=== PATIENT | female | born 1950 | race Caucasian/White ===

== ENCOUNTER 2020-11-22 13:28 | Emergency (ER) | payer OTHER ==
[~2020-11-22] VITALS: Ht 162.6 cm; Wt 99.8 kg
[~2020-11-22 13:28] MED LIST: ABILIFY10 MG PO; ASA81BEC PO; BUPROPION XL300 MG PO; HYDROXYZINE HCL50 MG PO; LIPITOR40 MG PO; NEURONTIN 300M300 M2 PO; NORCO5 PO; PLAVIX 75 MG TA75 MG PO; PROTONIX40 M2 PO; TIZANIDINE HCL4 M2 PO
[2020-11-23 00:27] VITALS: BP 168/89
[2020-11-23] MEDS ORDERED: PRINIVIL20 MG PO (08:24)
[2020-11-23] MEDS ORDERED: LIPITOR 40 MG T40 M1 PO (08:25)
[2020-11-23] MEDS ORDERED: CLOPIDOGREL75 MG PO (08:25)
[2020-11-23] MEDS ORDERED: ASPIRIN EC81 M1 PO (08:25)
[2020-11-23] MEDS ORDERED: HYDROCODON-ACE1 EAC7 PO (17:09)
== END 2020-11-23 00:29 ==
LOC: ER 13:28
PROVIDERS: Physician Assistant
DX: R45.1 Restlessness and agitation (principal); Z20.822 Contact with and (suspected) exposure to COVID-19

== ENCOUNTER 2020-11-22 14:54 | Inpatient (IN) | payer OTHER ==
[~2020-11-22] VITALS: Ht 162.6 cm; Wt 96.2 kg
--- NOTE | 2020-11-23 04:24 | NUR ---
Arrived on the [facility] floor, accompanied by x1 staff from the [facility] Emergency Department via bed @ 0030 on 11/23/20 and transferred to bed 526B. Has bruises on the right arm and scratches on her buttocks, redness noted around the anus. Toe nails are yellow and thick and the right foot, great toe nail is 1/2 removed. verbalizes aphasic speach continually. Has pain in right hip of 4/10. Reports that she does not use a walker but ambulates with an unsteady gait and x1 assist. History of multiple CVA, HTN, GERD, Shingles Sciatica, Depression, Osteoarthritis, HX Surgical cholecystectomy, Tubal ligation. VS 159/104 104 18 98.7 wt 212.3 ht 5'4". Bed in low position, bed alarm set will monitor patient every 12 minutes for patient safety and comfort.
[2020-11-23 07:49] LABS: CHOLESTEROL 125 mg/dL (<200); HDL CHOLESTEROL 38 mg/dL (>40); LDL CHOLESTEROL 63 mg/dL (<100); TC:HDL 3.3 Ratio (Not establshd); TRIGLYCERIDE 123 mg/dL (<150); VLDL 25 mg/dL (<40)
[2020-11-23] MEDS ORDERED: PRINIVIL20 MG PO (08:24)
[2020-11-23] MEDS ORDERED: ASPIRIN EC81 M1 PO (08:25)
[2020-11-23] MEDS ORDERED: LIPITOR 40 MG T40 M1 PO (08:25)
[2020-11-23] MEDS ORDERED: CLOPIDOGREL75 MG PO (08:25)
[2020-11-23 09:12] VITALS: BP 153/84
--- NOTE | 2020-11-23 10:12 | NUR ---
Nutrition: New admit [facility] with unspecified depression, agitation. Little info as just admitted early this am. Noted pt refused breakfast, stating she disliked biscuits/gravy. RD will enter alternate preference when these are on menu. Voiced no other food preferences and generally good appetite. No weight changes. Current weight 36, BMI obesity class 2. Will follow po trends for accuracy but place pt as low nutrition risk at this time.
[2020-11-23 11:40] VITALS: BP 153/84
[2020-11-23 13:06] LABS: ALBUMIN 3.5 g/dL (3.4-5.0); CALCIUM 8.8 mg/dL (8.5-10.1); CREATININE 1.2 mg/dL (0.6-1.0); TOTAL BILIRUBIN 0.3 mg/dL (0.2-1.0); TOTAL PROTEIN 6.1 g/dL (6.4-8.2)
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
--- NOTE | 2020-11-23 15:29 | NUR ---
Jessie was alert and oriented to person, place, time, and situation. She slept in this morning as she was admitted over night. She came to the dayroom once awake and appeared extremely anxious. She started to appear as though she was hyperventilating and experiencing a panic attack. Pt stated that she is "always like this". She stated that "nothing" helps at home and that she tries to sleep, and sleeps a lot at home. Dr. Gregorio was paged and stated he was on his way up to the unit and would meet with pt first. Dr. Gregorio started pt on ativan 0.5mg TID. The first dose did not appear to calm pt down much, was educated on deep breathing skills and phone calls made to pt's family which appeared to help. Pt received tizanidine 4 mg PO PRN for muscle spasms as pt was c/o right hip pain. Tyelnol was then ordered and also given per pt request for c/o right hip pain with her scheduled 1500 ativan; the combination appeared to have been effective as pt is currently resting in her bed comfortably. When asked if pt was experiencing suicidal thoughts, pt initially denied but when further discussing her symptoms pt stated "I don't care if I live or ". She was able to contract for safety. She denied HI/SHIPLEY. Pt's brother, Reyes, called this shift and pt gave permission to speak with him. Pt's brother stated that he is her caregiver and expressed wishes for her to return home. Pt was medication compliant this shift but required encouragement to eat, and appeared to have a poor appetite. Pt was given a walker this morning as pt appeared weak and expressed difficulty walking. Per PT pt should use walker with short distances and w/c for long distances at this time. Pt's bed alarm remained on while in bed and ambulated using her walker this shift. Will continue to monitor.
[2020-11-23] MEDS ORDERED: HYDROCODON-ACE1 EAC7 PO (17:09)
--- NOTE | 2020-11-23 18:02 | NUR ---
Jessie was alert and oriented x4 this shift. She slept in this morning as pt was admitted over night but once awake she came to the dayroom for group but immediately appeared anxious. She appeared to be having a panic attack, page was sent to Dr. Gregorio who stated he was on his way up to the unit and would come talk with her. New orders placed for ativan 0.5mg TID. Pt also voiced c/o right hip pain that had little improvement with PRN tizanidine and tylenol. Prior to dinner pt was moaning in pain, rating right hip pain 8/10, stabbing in nature and was not due for tizanidine or tylenol at that time. Pt stated that when she spoke to Dr. Charles he was going to order her a pain pill, Dr. Cahrles was paged, and home med of hydrocodone was restarted and given per APR. Pt is currently trying to rest in bed. When asked if pt was experiencing suicidal thoughts, she initially denied, but when discussing her anxiety and pain she stated "I don't care if I live or ". Pt was given other ways to cope such as education on deep breathing and offered to call family which appeared to help at times throughout the day. At 1805 pt's bed alarm was going off and pt stated she was having diarrhea, she stated it had just started, she had c/o heatburn and some nausea; zofran and mylanta given per MAR. Pt continued to stated "I just want to go to sleep. Do you see why I just wanted to go to sleep and not wake up!?". Emotional support given and pt receptive but continued to be tearful and she stated "I just want to go home". Education given on expectations during her stay, pt voiced understanding, but that she still wishes she could go home. Will continue to monitor.
[2020-11-23 19:21] VITALS: BP 121/75
[2020-11-24 01:06] LABS: GLYCOHEMOGLOBIN (HGB A1C) 5.6 % (4.8-5.6)
--- NOTE | 2020-11-24 01:34 | NUR ---
PATIENT IS EXTREMELLY ANXIOUS AND WHEN AWAKE SHE IS MAKING MOANING SOUNDS. PATIENT DENIES SI,HI, AH AND VH AND STATES SHE JUST WANTS TO GO HOME NOW. PATIENT WAS INCONTINENT OF BOWEL THIS EVENING. PATIENT IS ALERT AND ORIENTED X 4, STATES SHE IS ALWAYS IN PAIN, MEDICATION COMPLIANT. PATIENT AMBULATES WITH THE AID OF A WALKER.
[2020-11-24 09:08] VITALS: BP 143/88
[2020-11-24 14:12] VITALS: BP 143/88
--- NOTE | 2020-11-24 15:55 | NUR ---
Jessie was alert and oriented x4 this shift. She slept in this morning but shortly after going to the dayroom, she began to voice anxiety and that "my anxiety hasn't gotten any better". She also endorsed pain; PRN hydrocodone given at 1114 and tizanidine at 1155 as pt continued to moan and grimace in pain. Scheduled ativan given with what appeared to be some effectiveness. Pt endorsed passive SI of wishing she could go to sleep and not wake up but denied plan/intent and was able to contract for safety. This afternoon pt's pain appeared to be more under control as pt was resting comfortably in bed. She expressed, "my humming hasn't gotten any better and I thought it would have. I'm embarrassed, that's why I don't like to be by everyone else". Emotional support given and pt was receptive; she did come out of her room for a little bit afterwards but shortly after returned to her room. Pt remains a high fall risk and is wearing a yellow shirt, with yellow-skid socks, has had her bed alarm on throughout the day, and has ambulated with a walker, and assisted to the bathroom when needed. Pt has been medication and meal compliant, without difficulty. She did endorse an episode of diarrhea last night but denied an episode yet today. Dr. Charles was updated and order placed for immodium PRN. Will continue to monitor.
[2020-11-24 19:30] VITALS: BP 126/80
--- NOTE | 2020-11-24 23:12 | NUR ---
Assumed care on 11/24/20 @ 1900, in bedroom in bed, opens eyes to voice and reorts some anxiety and depression. Denies active SI and HI. Reports pain in her hip, provided norco 5/325 for 8/10 pain and upon follow up is noted to be sleeping. Bed in low position, will continue to monitor for safety and comfort as per unit protocol.
[2020-11-25 09:29] VITALS: BP 106/59
[2020-11-25 11:43] VITALS: BP 106/59
--- NOTE | 2020-11-25 17:43 | NUR ---
Jessie was alert and oriented x4 this shift. She appeared slightly less anxious that previous day. She requested her hydrocodone and zanaflex PRN per MAR for pain. Despite c/o pain she appeared to make more of an effort to attend groups and get out of bed to come to the dayroom. She had a moment of being tearful today and stating she just wanted to go home, but respnoded appropriately to emotional support. She denied SI/HI/SHIPLEY and did not make any statements of wishing she could just go to sleep which is an improvement. She voiced anxiety about what was going to be determined during her family meeting next week. She was medication compliant but appears to have a decreased appetite. She did voice c/ diarrhea this afternoon; immodium givem per MAR. Will continue to monitor.
--- NOTE | 2020-11-26 00:44 | NUR ---
11/25/20- Pt was in bed during the beginning of the shift. Pt does get up intermittently to use the restroom, Pt was anxious this shift expressed concerns about not being able to go home with her brother, reassurance provided and talked with pt and allowed her to express her feelings and concerns. Pt denies SI/HI/AH/VH. Pt is alert/orient x 3, will continue to monitor throughout shift.
[2020-11-26 00:56] VITALS: BP 106/59
[2020-11-26 05:23] LABS: ABSOLUTE NEUTROPHILS 2.5 thou/uL (1.4-8.2); BASOPHILS 0.6 % (0.0-2.0); EOSINOPHILS 1.6 % (0.0-3.0); HEMATOCRIT 33.5 % (37.0-47.0); HEMOGLOBIN 10.6 gm/dL (12.0-15.0); LYMPHOCYTES 36.9 % (24.0-44.0); MCH 26.2 pg (26.0-34.0); MCHC 31.8 g/dL (28.0-37.0); MCV 82.3 fL (80.0-100.0); MONOCYTES 6.1 % (1.0-8.0); PLATELET COUNT 265 thou/uL (150-400); POLYS 54.8 % (36.0-66.0); RBC 4.07 mil/uL (4.20-5.00); RDW 14.9 % (10.5-14.5); WBC 4.5 thou/uL (4.0-11.0)
[2020-11-26 05:31] LABS: ALBUMIN 3.3 g/dL (3.4-5.0); CALCIUM 8.6 mg/dL (8.5-10.1); CREATININE 1.2 mg/dL (0.6-1.0); MAGNESIUM 2.3 mg/dL (1.8-2.4); POTASSIUM 3.9 mmol/L (3.5-5.1); TOTAL BILIRUBIN 0.4 mg/dL (0.2-1.0); TOTAL PROTEIN 6.4 g/dL (6.4-8.2)
[2020-11-26 09:55] VITALS: BP 140/68
[2020-11-26 13:11] VITALS: BP 140/68
--- NOTE | 2020-11-26 16:18 | NUR ---
Jessie was alert and oriented x4 this shift. She was anxious with a flat affect throughout the day, and tearful at times. She voiced anxiety around her situation with her family and expressed she spoke to her brother last night that upset her and reports she did not sleep well last night. She voiced c/o pain throughout the day of R hip pain and received hydrocodone and zanaflex PRN per MAR with some effectiveness. Pt voiced that she feels as though her anxiety has not improved and was worried about this, emotional support given; this was also reported to FOOD VENDOR Prosper. Pt voiced passive SI stating "I just want to go to sleep and not wake up". Pt spoke to her daughter, Елена, this afternoon and this RN also spoke to daughter; Елена voiced concerns and frustration regarding pt's brother talking to pt and receiving information about pts care. Елена was educated that pt is her own person and therefore makes her own decisions. Елена stated that her and her brother have DPOA paperwork; she was provided with Jessie's email (community cultural development officer) to email the paperwork to. Елена was also updated that the first day pt was here she told this RN to give her brother her code and wanted this RN to talk to him. That afternoon pt also wanted to talk to him and said she had a good conversation with him. This RN also communicated understanding of the situation and that if pt's wishes were to not have her brother have information any longer or talk to her then this would be passed on in report and to other staff. Pt confirmed that it would be best for her to not talk to her brother at this time despite her wanting to. This was passed on to staff on the unit and will be passed on to HS RN [place] in report. Pt remains a high fall risk and remains in a yellow shirt, yellow non-skid socks, and had her bed alarm on throughout the day. Pt ambulated using a walker this shift and did not c/o any diarrhea. She did state "I'm actually hungry today" as pt has not had much of an appetite since she has been here. Pt denied HI/SHIPLEY and contracted for safety. Pt received hydroxyzine this morning for c/o anxiety but stated "I don't think it helped". Will continue to monitor.
--- NOTE | 2020-11-26 16:51 | NUR ---
SW attempted to check in with pt. during group. Pt. was extremely emotional. Pt. expressed being in pain and wanting to go back to her room. Prior to the SW talking to the pt, the pt had been on the phone. The SW talked to the nurse who also talked to the pt's family member. The nurse reported that the pt. is no longer talking to her brother, Reyes.
[2020-11-26 19:30] VITALS: BP 91/57
--- NOTE | 2020-11-27 00:15 | NUR ---
PATIENT RESTING IN HER ROOM AAOX2. PATIENT STATES THAT SHE IS IN PAIN AND REQUESTS HER MUSCLE RELAXER. PATIENT GRUNTS WITH MOVEMENT BUT NO SIGNS OF DISTRESS ARE NOTED. STATES THAT SHE JUST WANTS TO GO TO SLEEP. SHE IS AMBULATIORY WITH ASSISTANCE. ALL SAFETY PRECAUTION ARE TAKEN. VSS. WILL CONTINEU TO MONITOR FOR CHANGES IN STATUS.
[2020-11-27 09:44] VITALS: BP 129/84
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
--- NOTE | 2020-11-28 03:33 | NUR ---
AT ONSET OF SHIFT PT WAS IN HER ROOM AWAKE. THIS SHIFT PT WAS ALERT AND ORIENTED X3. PT WAS VERY ANXIOUS AT ONSET OF SHIFT. PT'S SPEECH IS RAPID AND PT MAKES HUMMING NOISES IN BETWEEN WORDS. PT STATED SHE NOISES SHE MAKES ARE RELATED TO HER ANXIETY. PT EXPRESSED FRUSTRATION WITH BEING HOSPITALIZED; PT STATED SHE TRIED TO CALL [facility] FOR THEM TO COME FIX HER BED AND SHE STATED THAT NO DOCTOR CAME TO SEE HER DURING DAY SHIFT. PT ALSO HAD DIARRHEA ON EDI ARCHITECT. RECIEVED IMODIUM. PT ALSO RECIEVED HYDROXYZINE AND TIZANIDINE AT BEDTIME. PT WAS COMPLIANT WITH MEDICATION AND VITAL SIGNS. PT DENIED SI, HI AND AVH. FALL PRECAUTIONS ARE IN PLACE.
[2020-11-28 09:32] VITALS: BP 141/77
[2020-11-28 10:47] VITALS: BP 141/77
--- NOTE | 2020-11-28 15:09 | NUR ---
Pt was alert and oriented x4 throughout the day, yet forgetful at times. Pt appears anxious, although slightly more calm than previous days. She was more talkative today and was noted smiling at times. She attended groups throughout the day, and was out of her room periodically throughout the day, but was otherwise isolative to her room. She was medication and meal compliant, without difficulty. Her appetite appears to be improving. Pt's brother called this morning and was transferred to [facility] as all incoming phone calls are to be transferred to . Pt called and spoke to her son and daughter today and was happy to hear that her dog is ok, as she was told yesterday her dog was bit by a pitbull and she was not sure if he was ok or not. Pt remains a high fall risk and is in a yellow shirt and yellow non-skid socks. Pt ambulates using a walker and her bed alarm has been on throughout the day. Pt voiced an episod eof diarrhea this morning and was needing to be "cleaned up". Pt was given immodium and pt has not c/o diarrhea since administration. She rated her anxiety 4/10 and depression 3/10 today, 10 being the worst. She denied SI/HI/SHIPLEY this shift and contracted for safety. Will continue to monitor.
--- NOTE | 2020-11-28 16:17 | NUR ---
SW completed a SLUMS with the Pt. Pt scored
--- NOTE | 2020-11-28 17:40 | NUR ---
SIMONA and Dr. Ward participated in a phone call with Michael Norwood concerning discharge plans. Michael talked about the concerns of Pt returning home due to the Pt brother being in the home. Dr. Ward discussed the enactment of the DPOA and provide education concerning enactment. Dr. Ward gave a recommendation for longterm level of care. Michael was in agreement placement in a longterm at this time. Michael did not have any further questions or concerns at this time. SIMONA will continue to follow
[2020-11-28 19:46] VITALS: BP 143/83
--- NOTE | 2020-11-29 02:53 | NUR ---
AT ONSET OF PHOTOENGRAVING PHOTOGRAPHER PT WAS AMBULATING IN THE HALLWAY. THIS SHIFT PT WAS ALERT AND ORIENTED X4. PT WAS PLEASANT AND COOPERATIVE. PT STATED HER ANXIETY IS IMPROVING. PT'S SPEECH WAS LESS PRESSURED THIS SHIFT, BUT PT CONTINUES TO MAKE HUMMING SOUNDS. PT DENIED SI, HI AND AVH. PT WAS COMPLIANT WITH MEDICATION AND VITAL SIGNS. PT REQUESTED MELATONIN AND TIZANIDIN. FALL PRECAUTIONS ARE IN PLACE.
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
[2020-11-29 09:35] VITALS: BP 141/75
--- NOTE | 2020-11-29 11:41 | NUR ---
change nutrition status to moderate risk
--- NOTE | 2020-11-29 16:29 | NUR ---
Jessie was alert and oriented to self, place, and situation but disoriented to time; she initially stated it was 2000 and then she stated it was 2001. Pt was very anxious throughout the day regarding the discussion of "going to a home". She spoke to her son this morning and was getting worked up, requiring redirection. Per pt's daughter, pt was blaming her son Michael for going to a prison and was trying to tell him she could go stay with him. This RN tried to provide education and help pt see the situation in a realistic manor, as pt has required assistance with cares such as showering, and being incontinent at times. This RN asked pt, "what would you eat at home, would you be able to cook for yourself?". Pt replied, "I can make pizza rolls". Pt later spoke to her daughter and after talking to her daughter pt appeared slightly more accepting of the situation. She voiced worries about her brother and her dog, stating she's worried about her brother. Pt then asked if she could og to a prison in this area, reassurance given that SW would first look at facilities close to her home. Pt this morning denied SI but this afternoon pt stated "my daughter said we could reevaluate in 6 months but I'm not going to wake up in 6 months". This RN asked pt why she wouldn't wake up and pt stated "I just want to go to sleep, I just want to go to sleep". Pt was evasive when answering this question but denied that she had a plan or would act on these thoughts at this time. Pt then came out to the dayroom and appeared more calm than she had been throughout the day. Pt received tizanidine per pt request for c/o pain, with effectiveness. Pt's seroquel was increased to 25 mg TID, first dose received this afternoon. This morning pt rated her pain 5/10, anxiety 5/10, and depression 10/10; 10 being the worst. An OT consult was placed for pt, and pt was given education regarding OT order. Pt partially participated in groups this shift. Pt is currently resting in bed, will continue to monitor.
[2020-11-29 19:35] VITALS: BP 111/65
--- NOTE | 2020-11-30 04:23 | NUR ---
ASSUMED CARE ON 11/29/20 @ 1900, COOPERATIVE WITH CARE, A&OX2 NOT ORIENTED TO TIME. TEARFUL AND WORRIED ABOUT HER DOG NAMED JERAD AND WHO WILL CARE FOR THE DOG IF SHE GOES TO THE CUSTODIAL. TYLENOL 650 PROVIDED FOR GEN 6/10 PAIN, HYDROXYZIN 10 MG PROVIDED FOR ANXIETY AND NORCO 5/325 PROVIDED FOR UNRESOLVED PAIN. SLEEPING WELL IN BED WITH BED IN LOW SETTING, BED ALARM SET AND 12 MINUTE ROUNDING FOR COMFORT AND SAFETY PER UNIT PROTOCOL.
[2020-11-30 09:54] VITALS: BP 120/62
[2020-11-30 10:39] VITALS: BP 120/62
--- NOTE | 2020-11-30 10:58 | NUR ---
RT Progress Note- Jessie has been present in the milieu each day since her admission, though recreation therapy group attendance has been variable. Jessie has displayed extreme anxiety and has much difficulty focusing on group and instead perseverates on many different thoughts unrelated to discussions-- how her dog is doing, when will she get to use the phone, did she take the medication that the nurse gave her at the right time... etc. She is able to identify her body's signs of anxiety such as increased humming or "jumping legs" but is not yet able to calm herself independently. COMMERCIAL MAINTENANCE TECHNICIAN and recreation therapy team will continue to encourage group attendance and participation as well as assisting Jessie in identifying independent coping skills that she can use when she is feeling extremely anxious.
--- NOTE | 2020-11-30 11:27 | NUR ---
Referrals sent to the following [facility]
--- NOTE | 2020-11-30 11:44 | NUR ---
Assumed care from overnight shift this am. Client was oriented 3x, knowing her name, year, and where she was, though she was confused in terms of the date. Client stated that she was upset that she had to go to a fci, and that she was experiencing some depression and anxiety from this knowledge. Client rated this at a five out of ten. Client stated that she had hip and back pain 5/10 as well. Client stated that she first wanted to eat breakfast before her pain medication, requesting prn tizanidine and tylenol. Client denied any si/hi/vh/ah at this time. Lung sounds clear, though client did cough during during assessment; nothing noted. Bowel sounds present. Client was then helped up and taken to activity area. Client was given all medications and prn medication were provided after breakfast. No further concerns at this time. Will continue to monitor for safety and psychiatric concerns.
[2020-11-30 19:15] VITALS: BP 125/69
--- NOTE | 2020-12-01 03:02 | NUR ---
PATIENT STATES SHE IS NOT DOING WELL, UPSET ABOUT ASSISTED LIVING, EXPLAINED TO PATIENT IT'S LIKE HER OWN PLACE EXCEPT THE NURSE COMES TO VISIT. PATIENT SAID SHE WOULD GO IF SHE COULD TAKE HER DOG. PATIENT RATES HER ANXIETY 6/10, DEPRESSION 10/10, PAIN 5/10. PATIENT DENIES SI/HI, STATES SHE IS BORED OUT OF HER MIND AND IS ATTENDING GROUPS AND BELIEVES THEY ARE HELPFUL. PATIENT IS MEDICATION COMPLIANT, CONTINENT OF BOWEL AND BLADDER AND AMBULATES WITH WALKER.
[2020-12-01 09:04] VITALS: BP 152/70
--- NOTE | 2020-12-01 15:00 | NUR ---
Assumed pt care at 0700. pt was alert and oriented, to person, place and situation. Assessments completed, vss. lungs clear, active bowel sound. Denies si/hi, c/o pain. Took meds whole, no difficulty noted, ambulates with a walker. PT is cooperative and fussy this shift. No sign of acute distress noted upon assessments. Pt is continent of bowel and bladder this shift. Makes needs known to staff. PRn tylenol administered for pain. At this time pt is in the day room. Will continue to monitor.
--- NOTE | 2020-12-01 17:47 | NUR ---
SW faxed referrals to the following: [facility]
[2020-12-01 19:30] VITALS: BP 127/71
--- NOTE | 2020-12-02 02:45 | NUR ---
pATIENT IS STILL SOMATIC AND MED SEEKING, SHE TALKS ABOUT ALL THE PAIN SHE IS IN AND I SUGGESTED THAT SHE SHOULD TRY AND WALK AROUND MORE BECAUSE HER MUSCLE ARE STIFF. PATIENT BECAME UPSET STATING SHE WALKS ALL THE TIME, BUT PER DAY SHIFT REPORT SHE ONLT COMES OUT OF HER ROOM FOR SOME GROUPS ANDTO ASK FOR MEDICATION. PATIENT IS CONTINENT OF BOWL AND BLADDER, MEDICATION COMPLIANT, AMBULATES WITH WALKER.
[2020-12-02 10:01] VITALS: BP 147/87
--- NOTE | 2020-12-02 14:12 | NUR ---
Assumed pt care at 0700. Pt was alert and oriented x4. Assessments completed, vss. Lungs clear, active bowel sound. Denies si/hi, c/o pain. Tylenol and hydrocodone administered for pain. Took meds whole with thin liquid, no difficulty noted. Incontinent of bowel and bladder this shift x2. Ambulates with a walker. Fussy and attention seeking. Makes needs known to staff. At this time pt is in her room. Will continue to monitor.
[2020-12-02 20:01] VITALS: BP 164/99
[2020-12-02 20:04] VITALS: BP 164/99
--- NOTE | 2020-12-03 03:16 | NUR ---
pATIENT HAS BEEN IN BED ALL EVENING AND NIGHT ONLY GETTING UP TO ASK FOR MEDICATIONS. PATIENT TOLD THE DAY NURSE THAT I HAD CALLED THE THE DOCTOR TO GIVE HER SOMETHING SPECIAL TO SLEEP THE NIGHT BEFORE. SHE TOLD EVENING STAFF THAT DAY STAFF WAS HOLDING ON TO HER MEDICATIONS AND NOT GIVING THEM TO HER. PATIENT CONTINUES WITH SOMATIC COMPLAINTS, IS CONTINENT OF BOWEL AND BLADDER AND AMBULATES WITH WALKER. PATIENT IS IRRITABLE BUT DENIES SI/HI.
[2020-12-03 07:40] VITALS: BP 124/58
[2020-12-03 10:53] VITALS: BP 124/58
--- NOTE | 2020-12-03 12:23 | NUR ---
RESUMMED CARE FROM OVERNIGHT SHIFT THIS AM, PATIENT IN ROOM LYING QUIETLY. PATIENT IS UPSET THAT SHE HAS TO GO TO A PLACEMENT SHE WANTS TO LEAVE THIS HOSPITAL AND GO SOMEWHERE ELSE. I TRIED TO EXPLAIN TO THE PATIENT THAT SHE NEEDS MORE CARE THEN HER BROTHER CAN PROVIDE. SHE FEELS SHE CAN MAKE IT ON HER OWN. PATIENT ATE 20% OF HER BREAKFAST AND WAS TRYING TO REFUSE TO EAT HER LUNCH. I TOLD THE PATIENT YOU HAVE TO HAVE FOOD ON YOUR STOMACH WHEN TAKING MEDICATION. PATIENT DENIES SI/HI/AH/VH AT PRESENT, SHE DOES HAVE HIGH ANXIETY AND VOCALIZES DEPRESSION OVER POTENTIAL INTERMEDIATE PLACEMENT. PATIENT IS TRYING TO EAT SOME LUNCH PATIENTS ABDOMEN FIRM BOWEL SOUNDS PRESENT. PATIENTS LUNGS CLEAR. WILL CONTINUE TO MONITOR PATIENT FOR SAFETY AND BEHAVIORS.
[2020-12-03 19:50] VITALS: BP 111/67
[2020-12-03 19:59] VITALS: BP 111/67
--- NOTE | 2020-12-04 00:22 | NUR ---
PATIENT CARE WAS RESUMED AT 1900. SHE WAS RESTING IN BED IN HER ROOM. SHE C/O PAINS TO HER BACK AND PRN TYLENOL GIVEN WITH SOMEWHAT EFFECT. SHE IS ABLE TO VERBALIZE HER PAINS. SHE DENIES SI/AVH/HI. SHE C/O OF ANXIETY. SHE ATE HER SNACKS AND TOOK HER MEDS WHOLE WITHOUT ANY CONCERN. SHE CONTINUES TO MOAN AND SHE DENIES THAT ITS RELATED TO PAINS. SHE AMBULATES WITH WHEELCHAIR. LUNGS ARE CLEAR BS ACTIVE. SHE IS CONTINENT OF BOWEL ABD BLADDER. [id number] CHECK IS ONGOING AND BED IS LOW, LOCKED, ALARMED. CONTINUE CARE.
[2020-12-04 09:12] VITALS: BP 148/79
[2020-12-04 11:07] VITALS: BP 148/79
[2020-12-04 12:23] LABS: CREATININE 1.2 mg/dL (0.6-1.0); POTASSIUM 3.2 mmol/L (3.5-5.1)
--- NOTE | 2020-12-04 13:07 | NUR ---
RESUMMED CARE FROM OVERNIGHT SHIFT THIS AM, PATIENT IN ROOM LYING QUIET. PATIENT ALERT ORIENTED TIMES 2-3 PATIENT HAS HIGH ANXIETY AND IS ALWAYS COMING TO THE NURSES STATION ASKING FOR MEDICATION. PATIENT DENIES SI/HI/AH/VH AT PRESENT. PATIENT SHOWERED TODAY AND WASHED HAIR PARTICPATED IN GROUPS TODAY. PATIENTS ABDOMEN SOFT BOWEL SOUNDS PRESENT PATIENTS LUNGS CLEAR, PATIENT DOES NOT DISPLAY BEHAVIORS. HER ANXIETY LEVEL IS ALWAYS HIGH WILL CONTINUE TO MONITOR PATIENT FOR SAFETY AND BEHAVIORS.
--- NOTE | 2020-12-04 18:02 | NUR ---
SW sent referrals to the following: [facility]
[2020-12-04 20:00] VITALS: BP 110/54
[2020-12-04 20:10] VITALS: BP 110/54
--- NOTE | 2020-12-05 04:30 | NUR ---
PATIENT CARE WAS RESUMED AT 1900. SHE WAS AMBULATING THE HALLWAY. SHEIS ALERT AND SHE MOAN ASKING FOR HELP. SHE C/O PAINS PRN NORCO GIVEN. SHE IS CONTINENT OF BOWEL AND BLADDER. ABLE TO VERBALIZE HER CONCERNS. SHE CONTINUES TO ASK FOR MORE MEDS AND NURSE TOLD HER TO WAIT FOR THE EFFECT OF THE MEDS SHE TOOK. SHE DENIES SI/AVH/HI. SHE IS ON FALL PRACAUTION, BED IS LOW, LOCKED AND ALARMED. LUNGS ARE CLEAR, BS ACTIVE X4 QUADS. CONTIINUE CARE AND Q 12MINUTES CHECK O=IS ONGOING.
[2020-12-05 10:07] VITALS: BP 155/74
--- NOTE | 2020-12-05 14:57 | NUR ---
PATIENT CARE ASSUMED AT 0900, PATINET LAYING IN BED WITH EYES OPENED, ALERT AND ORIENTED X3, PATIENT ASKED FOR MEDICATION FOR PAIN, SHE SAID," SHE WAS HAVING ANXIETY" ASKED PATIENT TO WAIT TILL AFTER REPORT, SHE REFUSED BREAKFAST,PATIENT PLEASANT WITH CARE, ACTIVE BOWEL SOUND WITH SOFT AND ROUNDED ABDOMEN, LUNGS CLEAR, REGULAR HR, RR EVEN NONLABORED ROOM AIR, SKIN INTACT WITH NO EDEMA NOTED, PATIENT TOOK MEDICATION WHOLE, SHE AMBULATE WITH A WALKER, PATIENT CONTINUE TO COME TO THE NURSING STATION ASKING FOR PAIN AND ANXIETY MEDICATION EVERY HR, FALL PRECAUTION IN PLACE, PATIENT DENIES SI/HI, WILL CONTINUE TO MONITOR PATIENT FOR SAFETY
[2020-12-05 20:04] VITALS: BP 126/61
--- NOTE | 2020-12-06 03:45 | NUR ---
PATIENT HAS BEEN IN HER ROOM ALL EVENING AND NIGHT ONLY COMING OUT FOR MEDICATION. PATIENT REMAINS SOMATIC WITH MANY COMPLANTS, DENIES SI/HI, PATIENT APPEARS ANXIOUS AND DEPRESSED.
[2020-12-06 09:44] VITALS: BP 134/69
--- NOTE | 2020-12-06 17:32 | NUR ---
[facility]- declined due to no beds [facility]- declined due to Pt having SI SW sent new referrals to the following: [facility]
--- NOTE | 2020-12-06 17:54 | NUR ---
PATIENT WAS IN BED AWAKE WHEN CARE ASSUMED, SHE C/O NAUSEA THIS MORNING, ZOFRAN GIVEN, WITH POSITIVE EFFECT. PATIENT STATES SHE HAD LOOSE STOOL X 1, PRN IMODIUM ONE TAB GIVEN, NO FURTHER COMPLAIN VOICED. PATIENT WITH SOMATIC COMPLAINS. PRN TYLENOL GIVEN FOR BACK PAIN, WITH POSITIVE EFFECT. NO FURTHER COMPLAIN OF PAIN VOICED. PATIENT DECLINE BREAKFAST, ATE LUNCH, AND CHOOSE NOT TO EAT SUPPER. PATIENT DENIES SUICIDAL/HOMICIDAL IDEATION, SHE RATES DEPRESSION 7/10, RATES ANXIETY 1/10. AFFECT IS FLAT/BLUNTED, MOOD IS DEPRESSED/ANXIOUS. PATIENT WITH POOR EYE CONTACT. PATIENT HAD SHOWER THIS MORNING, OT STAFF ON STAND-BY, SHE TOLERATED SHOWER WELL. PATIENT STATES SHE FELT BETTER AFTER SHOWER THIS MORNING. PATIENT AMBULATE WITH ASSIST OF ROLLER WALKER. NO SIGN OF ACUTE DISTRESS NOTED AT THIS TIME, WILL MONITOR FOR SAFETY.
[2020-12-06 19:15] VITALS: BP 127/65
--- NOTE | 2020-12-07 02:41 | NUR ---
PATIENT WAS NOT SO MEDICATION FOCUSED TONIGHT AND DID COME OUT OF ROOM FOR EVENING SNACK. PATIENT IS MEDICATION COMPLIANT AND HAS SLEPT THROUGH THE NIGHT. NO NEW CONCERNS NOTED.
[2020-12-07 09:38] VITALS: BP 123/61
--- NOTE | 2020-12-07 11:51 | NUR ---
RT Progress Note- Jessie continues to attend most recreation therapy groups as well as isolate to her room when no programming is occuring. She continues to appear extremely anxious and perseverates on multiple thoughts or things she believes she needs to be doing. [employer] has encouraged patient to remember the coping skills she has learned and to turn them into action, but patient often replies, "I just can't." [employer] and recreation therapy team will continue to encourage her participation and utilization or relaxation and coping skills.
--- NOTE | 2020-12-07 13:19 | NUR ---
PATIENT CARE ASSUMED BY 0700, PATIENT LAYING IN BED AWAKE, SHE IS ALERT AND ORIENTED X3, CALM AND PLEASANT WITH CARE, ACTIVE BOWEL SOUND WITH SOFT AND ROUNED ABDOMEN, BREATH SOUND CLEAR, REGULAR HR, SKIN INTACT, NO EDEMA NOTED, PATIENT IS ABLE TO VERBALIZE NEED, COMPLAINED OF PAIN AND PRN TYLENOL WAS GIVEN, PATIENT AMBULATE WITH A WALKER AND SOME TIMES WALK WITHOUT IT, SHE TOOK MEDICATION WHOLE, PATICIPATED IN GROUP, DENIES SI/HI, WILL CONTINUE TO MONITOR PATIENT FOR SAFETY AND BEHAVIOR
--- NOTE | 2020-12-07 16:21 | NUR ---
Referral sent to: [facility]- no beds [facility]- no beds [facility]- declined [facility]
--- NOTE | 2020-12-07 17:37 | NUR ---
SIMONA spoke with Елена and provided an upate on placement. Елена stated she needed to give 2 weeks notice to the Pt's landlord if the Pt was going to move out. SIMONA informed there have been no sucess at this point with placement an the search would need to be expanded out of the [place] area. Елена was in agreement with this. Simona will continue to follow
[2020-12-07 18:54] VITALS: BP 143/66
--- NOTE | 2020-12-08 03:34 | NUR ---
PATIENT HAS BEEN QUITE PLEASANT THIS EVENING AND HANGING OUT IN DAY ROOM INTERACTING WELL WITH OTHER PEERS. PATIENT HAS BEEN MEDICATION COMPLIANT AND HAS ONLY ONE COMPLAINT OF A TOOTH ACHE IN WHICH SHE ASKED AND RECEIVED 650 MG OF TYLENOL. PATIENT HAS BEEN RESTING COMFORTABLY IN BED ALL NIGHT.
[2020-12-08 09:23] VITALS: BP 145/78
--- NOTE | 2020-12-08 11:56 | NUR ---
PATIENT IS ALERT AND ORIENTED X3, LAYING IN BED AWAKE WHEN CARE ASSUMED, PATIENT IS CALM AND COOPERATIVE WITH CARE, SHE REFUSED BREAKFAST, STATED SHE DON'T LIKE THE SMELL OF THE FOOD, ASSESSMENT COMPLETED WITH ACTIVE BOWEL SOUND WITH SOFT AND ROUNDED ABDOMEN, VSS, BREATH SOUND CLEAR, PATIENT IS ON ROOM AIR, SHE TOOK MEDICATION WHOLE, PATIENT COMPLAINED OF TOOTHACHE, DOCTOR DENISE WAS NOTIFIED AND SHE IS GOING TO ORDER ANTIBIOTIC. PRN WAS GIVEN FOR PAIN, PATIENT DENIES SI/HI
--- NOTE | 2020-12-08 14:48 | NUR ---
SIMONA recieved a call from Ofelia, document control coordinator at [facility]. Ofelia informed they are able to accept the Pt and would like to admit the Pt today. SIMONA requested to speak to the Pt's family concerning the admissions and call Ofelia back. Ofelia was okay with this. @1315 SIMONA contacted Елена concerning the matter and left a VM for a retuen call. Елена did call SIMONA back at 1430. SIMONA provide information on the facility and asked if Елена was in agreement. Елена was hesitant stating she didn't know much about the facilities and the reviews were not good online. SIMONA provided emotional support and encouraged Елена to contact the facility with specific questions. Елена did agree to the placement. @1330 SIMONA contacted Ofelia at [place] and informed the DPOA was in agreement with the placement. Discharge was set for 12/08/2020 @ 1630. [place] will provide transportation. SIMONA did inform the Pt of this information. Pt became very distraught and upset. Pt was tearful and state she was scared. SIMONA provided emotional support to the Pt and worked on focusing on the positives of this move. SIMONA walked Pt to her room for her to rest.
[2020-12-08] MEDS ORDERED: CLOPIDOGREL75 MG PO (15:47)
[2020-12-08] MEDS ORDERED: LIPITOR40 MG PO (15:47)
[2020-12-08] MEDS ORDERED: LISINOPRIL20 MG PO (15:48)
[2020-12-08] MEDS ORDERED: LEXAPRO 10 MG T10 M2 PO (15:49)
[2020-12-08] MEDS ORDERED: SEROQUEL 25 MG25 M1 PO (15:50)
[2020-12-08] MEDS ORDERED: REQUIP 1 MG TABL1 M1 PO (15:50)
--- NOTE | 2020-12-12 08:43 | D ---
[facility] [place] [address] DISCHARGE SUMMARY Name: BRIGID REYES Room #: 526B-B DIS IN M.R.#: [id number] Admission: 11/23/20 Attend Phys: Zuhair Gregorio DO Discharge: 12/08/20 Date of : 52 Report #: [id number] THIS REPORT FOR: cc: Cheng Hinds James V. DO Kerstein, Andrew H. DO ~ DATE OF SERVICE: 12/08/2020 INPATIENT PSYCHIATRIC DISCHARGE SUMMARY ATTENDING PSYCHIATRIST: Zuhair Gregorio DO DIAGNOSTIC SALES SPECIALIST: Crow Bella M.D. DISCHARGE DIAGNOSES: Major neurocognitive disorder, etiology unspecified. ADDITIONAL DIAGNOSIS: Generalized anxiety disorder. MEDICAL COMORBIDITIES: Hypertension, history of acute renal failure, hyperlipidemia, history of stroke, sciatica, back pain, degenerative joint disease. The patient is discharging to [facility] for psychiatric and medical care per receiving facility. DISCHARGE MEDICATIONS AND INSTRUCTIONS: Mechanical chopped diet, activity level as tolerated. Medications: Protonix 40 mg oral daily at 0700 for GERD, tizanidine 4 mg oral q. 8 p.r.n. muscle spasms, aspirin 81 mg oral daily for heart protection, Plavix 75 mg oral daily for heart protection, atorvastatin 40 mg oral daily for heart protection, lisinopril 20 mg oral daily for hypertension. She had been getting 5 mg daily of Lexapro, but I prescribed it as 10 mg oral daily, so I think at this point it is fine for her to go up to 10 mg. For anxiety and mood, she is on quetiapine fumarate 3 times a day. She takes 0.5 mg of Requip at 0900 and 1700 for restless legs syndrome. LABORATORY DATA: This admission, on 11/26/2020, hematology: Hemoglobin and hematocrit 10.6 and 32.5, white count 4.5, platelet count 265. Chemistry: Sodium 135, potassium 3.2, chloride 101, bicarbonate 29, anion gap 5, BUN 10, creatinine 1.2, estimated GFR 45, glucose 113, calcium 9.0, transaminases 20 and 23, alkaline phosphatase 101, albumin 3.3, that was on 11/26/2020. B12 level 472. TSH 1.228. COVID-19 test was done on the , , and , all 3 were negative. There was a 4th one on 11/22/2020, which was negative as well. REASON FOR ADMISSION: Back the end of October as follows: A 69-year-old female sent to us from the [facility] system. Apparently, the patient had increased anxiety. She was started on Remeron, orobuccal dyskinesias were noted. There is an affidavit done by her niece, named Miranda. The patient had reportedly overdosed on muscle relaxers and her degree of suicidality and harm risk is unclear at [facility]. [address] [address] DISCHARGE SUMMARY Name: RBIGID REYES Room #: 526B-B DIS IN Kira.Lily#: [id number] Admission: 11/23/20 Attend Phys: Zuhair Gregorio, Discharge: 12/08/20 Date of : 52 Report #: [id number] HOSPITAL COURSE: The patient was admitted to the Geriatric Psychiatry Unit. The patient was screened with instruments likely SLUMS, did qualify for having major neurocognitive disorder, had several family meetings, we recommended [facility] placement for the patient as I felt she needed 24-hour assistance and supervision. Eventually, that was able to be obtained at the [facility], but the patient does have [place] Medicaid. At the day of discharge, the patient was not suicidal or homicidal, felt to be ready for step-down. PHYSICAL EXAMINATION VITAL SIGNS: Temperature 36.8, pulse 65, respirations 17, BP 145/70, O2 sat 95%. MUSCULOSKELETAL: Slow gait, normal station, unkempt with appearance. MENTAL STATUS EXAMINATION: This is a well-developed, somewhat ill-appearing female appearing older than stated age. Attention fair. Concentration limited. Speech, the patient does have some speech impediment from her dyskinetic movements of her lips and tone. Thought process: Linear and goal directed. Thought content, focused on discharge. Denied SI, HI, auditory, visual, or tactile hallucinations. Denied hopelessness, helplessness. Memory not formally tested, known to have some impairment. Insight and judgment limited. Fund of knowledge, no greater than average. PROGNOSIS: For this patient is guarded and will depend on her physical health as well as emotional support that she gets. She was a full code during her hospital stay. <ELECTRONICALLY SIGNED> By: Zuhair Gregorio DO 12/12/20 [id number] Zuhair Gregorio DO /nt
== END 2020-12-08 17:30 | DRG 881 ==
LOC: SBH
PROVIDERS: Nurse Practitioner; Nurse Practitioner Family; ADMIT Psychiatry & Neurology Psychiatry; ATTEND Psychiatry & Neurology Psychiatry
DX: F32.9 Major depressive disorder, single episode, unspecified (principal); F01.51 Vascular dementia, unspecified severity, with behavioral disturbance; N17.9 Acute kidney failure, unspecified; E87.0 Hyperosmolality and hypernatremia; R45.851 Suicidal ideations; Z20.822 Contact with and (suspected) exposure to COVID-19; F41.1 Generalized anxiety disorder; E78.5 Hyperlipidemia, unspecified; I10 Essential (primary) hypertension; M19.90 Unspecified osteoarthritis, unspecified site; M54.30 Sciatica, unspecified side; Z79.82 Long term (current) use of aspirin; Z79.899 Other long term (current) drug therapy; Z86.73 Personal history of transient ischemic attack (TIA), and cerebral infarction without residual deficits; Z82.49 Family history of ischemic heart disease and other diseases of the circulatory system; Z87.891 Personal history of nicotine dependence; Z63.9 Problem related to primary support group, unspecified; Z90.49 Acquired absence of other specified parts of digestive tract; Z28.21 Immunization not carried out because of patient refusal
CPT/HCPCS: 10880